=== PATIENT | female | born 1950 | race Caucasian/White ===

== ENCOUNTER → 2019-07-26 | Outpatient (CLI) | payer MEDICARE, OTHER ==
[2019-07-26 14:38] LABS: BASOPHILS ABSOLUTE AUTO 0.03 K/mm3 (0.00-0.23); BASOPHILS PERCENT AUTO 1 % (0-2); EOSINOPHILS ABSOLUTE AUTO 0.11 K/mm3 (0.00-0.68); EOSINOPHILS PERCENT AUTO 2 % (0-6); Hematocrit 34.1 % (33.0-51.0); Hemoglobin 10.7 g/dL (11.5-16.0); IMMATURE GRAN ABSOLUTE AUTO 0.02 K/mm3 (0.00-0.10); IMMATURE GRAN PERCENT AUTO 0 % (0-1); LYMPHOCYTES ABSOLUTE AUTO 0.99 K/mm3 (0.84-5.20); LYMPHOCYTES PERCENT AUTO 21 % (21-46); MONOCYTES PERCENT AUTO 6 % (4-13); Mean Corpuscular HGB 30.2 pg (26.0-34.0); Mean Corpuscular HGB Conc 31.4 g/dL (31.5-36.5); Mean Corpuscular Volume 96 fL (80-100); Mean Platelet Volume 10.8 fL (9.1-12.4); NEUTROPHILS ABSOLUTE AUTO 3.26 K/mm3 (1.96-9.15); NEUTROPHILS PERCENT AUTO 69 % (41-73); Platelet Count 201 K/mm3 (150-400); RDW Coefficient Variation 13.2 % (11.7-14.2); RDW Standard Deviation 46.5 fL (35.1-46.3); Red Blood Cell Count 3.54 M/mm3 (3.80-5.20); White Blood Cell Count 4.71 K/mm3 (4.00-11.30)
[2019-07-26 15:02] LABS: Alanine Aminotransfer (ALT/SGP 19 U/L (12-78); Albumin, Blood 3.5 g/dL (3.4-5.0); Albumin/Globulin Ratio 1.2 (0.8-1.8); Alk Phos 81 U/L (40-126); Anion Gap 7 mmol/L (6-16); Aspartate Aminotrans (AST/SGOT 19 U/L (12-37); Bilirubin, Total 0.3 mg/dL (0.1-1.0); Blood Urea Nitrogen 16 mg/dL (8-24); Bun/Creatinine Ratio 25.8 (12.0-20.0); CO2, Blood 33 mmol/L (21-32); Calcium, Blood 8.8 mg/dL (8.5-10.1); Chloride, Blood 106 mmol/L (98-108); Creatinine, Blood 0.62 mg/dL (0.40-1.00); Glomerular Filtration Rate >60 (60-); Glucose, Blood 92 mg/dL (70-99); Sodium, Blood 146 mmol/L (136-145); Total Protein, Blood 6.5 g/dL (6.4-8.2)
== END | disposition home or self-care (01) ==
LOC: LAB SHORT 14:22 → LAB EV 14:22
PROVIDERS: Physician Assistant
DX: R60.0 Localized edema (principal)
CPT/HCPCS: 80053; 83880; 85025

== ENCOUNTER 2022-02-05 15:30 | Emergency (ER) | payer MEDICARE, OTHER ==
[~2022-02-05] VITALS: Ht 170.2 cm; Wt 113.4 kg
[2022-02-05] MEDS ORDERED: HYDR1TAB94 PO (17:20)
== END 2022-02-05 18:00 | disposition home or self-care (01) ==
LOC: ER 15:30
DX: S52.572A Other intraarticular fracture of lower end of left radius, initial encounter for closed fracture (principal); S82.831A Other fracture of upper and lower end of right fibula, initial encounter for closed fracture; G20 Parkinson's disease; W19.XXXA Unspecified fall, initial encounter
CPT/HCPCS: 73090; 73562-RT; A9270

== ENCOUNTER 2023-11-22 13:37 | Emergency (ER) | payer MEDICARE, OTHER ==
[~2023-11-22] VITALS: Ht 170.2 cm; Wt 133.4 kg
[~2023-11-22 13:37] MED LIST: HYDR1TAB94 PO
[2023-11-22] MEDS ORDERED: ALEN70 PO (14:18)
[2023-11-22] MEDS ORDERED: ACET500 PO (14:18)
[2023-11-22] MEDS ORDERED: BISA10S PR (14:19)
[2023-11-22] MEDS ORDERED: BREO ELLIPTA 21 EAC1 (14:19)
[2023-11-22] MEDS ORDERED: TUMS500 MG PO (14:20)
[2023-11-22] MEDS ORDERED: BUME1 PO (14:20)
[2023-11-22] MEDS ORDERED: SINEMET 25-1001 EAC1 PO (14:21)
[2023-11-22] MEDS ORDERED: HYDR1TAB94 PO (14:22)
[2023-11-22] MEDS ORDERED: FLONASE ALLERG9.9 M2 (14:22)
[2023-11-22] MEDS ORDERED: LOPE2C PO (14:23)
[2023-11-22] MEDS ORDERED: HYDHCL25 PO (14:23)
[2023-11-22] MEDS ORDERED: NIFE90ER PO (14:24)
[2023-11-22] MEDS ORDERED: LORATADINE10 M1 PO (14:24)
[2023-11-22] MEDS ORDERED: LOSA50 PO (14:24)
[2023-11-22] MEDS ORDERED: NYSTOP15 GM (14:25)
[2023-11-22] MEDS ORDERED: POTA10T PO (14:25)
[2023-11-22] MEDS ORDERED: SERT100 PO (14:25)
[2023-11-22] MEDS ORDERED: VITAMIN D5000 UNIT PO (14:26)
[2023-11-22] MEDS ORDERED: ALBU8HFA2 (14:26)
[2023-11-22] MEDS ORDERED: HYDROcodone 5-APAP 325 TAB PO ONE (14:55)
[2023-11-22 15:16] LABS: BASOPHILS ABSOLUTE AUTO 0.05 K/mm3 (0.00-0.23); BASOPHILS PERCENT AUTO 1 % (0-2); EOSINOPHILS ABSOLUTE AUTO 0.12 K/mm3 (0.00-0.68); EOSINOPHILS PERCENT AUTO 2 % (0-6); Hematocrit 38.3 % (33.0-51.0); Hemoglobin 12.1 g/dL (11.5-16.0); IMMATURE GRAN ABSOLUTE AUTO 0.02 K/mm3 (0.00-0.10); IMMATURE GRAN PERCENT AUTO 0 % (0-1); LYMPHOCYTES ABSOLUTE AUTO 1.15 K/mm3 (0.84-5.20); LYMPHOCYTES PERCENT AUTO 20 % (21-46); MONOCYTES ABSOLUTE AUTO 0.36 K/mm3 (0.16-1.47); MONOCYTES PERCENT AUTO 6 % (4-13); Mean Corpuscular HGB Conc 31.6 g/dL (31.5-36.5); Mean Corpuscular Volume 95 fL (80-100); Mean Platelet Volume 10.4 fL (9.1-12.4); NEUTROPHILS ABSOLUTE AUTO 3.95 K/mm3 (1.96-9.15); NEUTROPHILS PERCENT AUTO 70 % (41-73); Platelet Count 180 K/mm3 (150-400); RDW Coefficient Variation 13.6 % (11.7-14.2); RDW Standard Deviation 47.6 fL (35.1-46.3); Red Blood Cell Count 4.03 M/mm3 (3.80-5.20); White Blood Cell Count 5.65 K/mm3 (4.00-11.30)
[2023-11-22 15:47] LABS: Albumin, Blood 3.7 g/dL (3.4-5.0); Albumin/Globulin Ratio 1.2 (0.8-1.8); Bilirubin, Total 0.3 mg/dL (0.1-1.0); Calcium, Blood 9.5 mg/dL (8.5-10.1); Creatinine, Blood 0.62 mg/dL (0.40-1.00); Globulin, Blood 3.2 g/dL (2.2-4.0); Magnesium, Blood 2.3 mg/dL (1.6-2.4); Potassium, Blood 3.8 mmol/L (3.5-5.5); Total Protein, Blood 6.9 g/dL (6.4-8.2)
[2023-11-22 16:23] VITALS: BP 181/76
== END 2023-11-22 16:52 | disposition home or self-care (01) ==
LOC: ER 13:37
PROVIDERS: Student in an Organized Health Care Education/Training Program
DX: M25.511 Pain in right shoulder (principal); M25.512 Pain in left shoulder; M25.552 Pain in left hip; I10 Essential (primary) hypertension; W18.30XA Fall on same level, unspecified, initial encounter; Z79.899 Other long term (current) drug therapy
CPT/HCPCS: 71046; 73030; 73502; 80053; 83735; 85025; 93005; 93010; 99284-25; A9270

== ENCOUNTER 2024-02-07 09:09 | Emergency (ER) | payer OTHER, MEDICARE ==
[~2024-02-07] VITALS: Ht 172.7 cm; Wt 102.1 kg
[~2024-02-07 09:09] MED LIST changes: +ACET500 PO; +ALBU8HFA2; +ALEN70 PO; +BISA10S PR; +BREO ELLIPTA 21 EAC1; +BUME1 PO; +FLONASE ALLERG9.9 M2; +HYDHCL25 PO; +LOPE2C PO; +LORATADINE10 M1 PO; +LOSA50 PO; +NIFE90ER PO; +NYSTOP15 GM; +POTA10T PO; +SERT100 PO; +SINEMET 25-1001 EAC1 PO; +TUMS500 MG PO; +VITAMIN D5000 UNIT PO
[2024-02-07 12:00] VITALS: BP 163/67
== END 2024-02-07 12:19 | disposition home or self-care (01) ==
LOC: ER 09:09
DX: S00.83XA Contusion of other part of head, initial encounter (principal); S50.01XA Contusion of right elbow, initial encounter; S70.01XA Contusion of right hip, initial encounter; S40.011A Contusion of right shoulder, initial encounter; E78.5 Hyperlipidemia, unspecified; I10 Essential (primary) hypertension; G47.33 Obstructive sleep apnea (adult) (pediatric); J45.909 Unspecified asthma, uncomplicated; W01.10XA Fall on same level from slipping, tripping and stumbling with subsequent striking against unspecified object, initial encounter; Z79.51 Long term (current) use of inhaled steroids; Z79.899 Other long term (current) drug therapy
CPT/HCPCS: 70450; 73030; 73502; 99284-25

== ENCOUNTER → 2024-08-12 | Outpatient (CLI) | payer MEDICARE, OTHER | LOC: LAB SHORT 13:01 → LAB 13:01 | DX: M79.89 Other specified soft tissue disorders (principal) | CPT/HCPCS: 83880 ==